=== PATIENT | female | born 2000 | race Caucasian/White ===

== ENCOUNTER 2025-03-11 00:27 | Emergency (ER) | payer BC, SELFPAY ==
[2025-03-11] MEDS ORDERED: Rabies Vaccine Human 2.5 UNITS VIAL IM ONE (02:55)
[2025-03-11] MEDS ORDERED: Rabies Immune Globulin/PF 300 UNITS/ML VIAL IM SCH (12:45)
== END 2025-03-11 03:33 | disposition home or self-care (01) ==
LOC: CSHERS 00:27
DX: S50.811A Abrasion of right forearm, initial encounter (principal); Z23 Encounter for immunization; W55.03XA Scratched by cat, initial encounter
CPT/HCPCS: 90375; 90471; 90675; 96372

== ENCOUNTER 2025-03-14 06:33 | Day surgery (SDC) | payer BC ==
[2025-03-14] MEDS ORDERED: Rabies Vaccine Human 2.5 UNITS VIAL IM ONE (07:15)
== END 2025-03-14 07:52 | disposition home or self-care (01) ==
LOC: CSHSDC/OP 06:33 → CSHER/OP 06:33 → CSHERS 06:33 → CSHER/OP 07:52 → EDSTATUS 09:29
PROVIDERS: ATTEND Emergency Medicine
DX: Z29.14 Encounter for prophylactic rabies immune globulin (principal)
CPT/HCPCS: 90471; 90675